=== PATIENT | male | born 1990 | race Caucasian/White ===

== ENCOUNTER 2018-11-21 23:44 | Emergency (ER) | payer SELFPAY ==
[2018-11-22] MEDS ORDERED: LORazepam INJ* 2 MG/ML 1 ML VIAL ONE (00:02)
[2018-11-22] MEDS ORDERED: diPHENhydraMINE IV* 50 MG/ML 1 ml VIAL (BENADRYL) ONE (01:00)
[2018-11-22] MEDS ORDERED: Haloperidol INJ IV/IM* 5 MG/ML AMP ONE (01:00)
[2018-11-22 01:03] LABS: ABS Eosinophils 0.2 10^3/ul (0-0.6); ABS Lymphocytes 1.2 10^3/ul (1.0-4.8); ABS Monocytes 0.3 10^3/ul (0-0.8); ABS Neutrophils 9.3 10^3/ul (1.5-7.7); Eosinophil % 1.4 %; Hematocrit 42 % (42-52); Hemoglobin 14.1 g/dL (14.0-18.0); Lymphocyte % 10.8 %; Mean Corpuscular HGB Conc 34 g/dL (31-36); Mean Corpuscular Hemoglobin 29 pg (27-31); Mean Corpuscular Volume 86 fL (80-94); Mean Platelet Volume 7.8 fL (7.4-10.4); Platelet Count 269 10^3/uL (150-450); Red Blood Count 4.84 10^6 /uL (4.18-5.48); Red Cell Distribution Width 12 % (10-15); White Blood Count 11.1 10^3/uL (3.5-10.8)
[2018-11-22 01:21] LABS: ALT 27 U/L (7-52); Albumin 4.8 g/dL (3.2-5.2); Albumin/Globulin Ratio 1.9 (1-3); Alkaline Phosphatase 45 U/L (34-104); BUN/Creatinine Ratio 12.3 (8-20); Blood Urea Nitrogen 15 mg/dL (6-24); CO2 Carbon Dioxide 25 mmol/L (22-32); Calcium 9.1 mg/dL (8.6-10.3); Chloride 105 mmol/L (101-111); Creatine Kinase 341 U/L (10-223); EGFR African American 86.9 (>60); EGFR Non-African American 71.8 (>60); Globulin 2.5 g/dL (2-4); Glucose 106 mg/dL (70-100); Sodium 141 mmol/L (135-145); Total Protein 7.3 g/dL (6.4-8.9)
[2018-11-22 01:34] LABS: Acetaminophen < 15 mcg/mL; Alcohol 313 mg/dL (<10); Salicylate < 2.50 mg/dL (<30)
[2018-11-22 01:49] LABS: TSH (Thyroid Stimulating Horm) 0.63 mcIU/mL (0.34-5.60)
[2018-11-22 02:07] LABS: AST 35 U/L (13-39); Anion Gap 11 mmol/L (2-11); Potassium 3.8 mmol/L (3.5-5.0)
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
[2018-11-22] MEDS ORDERED: NS 0.9% 1000 ML** 1,000 ML IV ONE (05:54)
[2018-11-22 07:27] VITALS: BP 127/73
== END 2018-11-22 07:27 | disposition home or self-care (01) ==
LOC: EDBD → ED 23:44
DX: F10.929 Alcohol use, unspecified with intoxication, unspecified (principal)
CPT/HCPCS: 36415; 70450; 70486; 72125; 80053; 80320; 80329; 82550; 84443; 85025; 96360; 99283; G0480; J1200; J1630; J2060